=== PATIENT | female | born 1970 | race Caucasian/White ===

== ENCOUNTER → 2024-03-14 11:28 | Outpatient (REF) | payer BC, OTHER, SELFPAY ==
[2024-03-14 12:57] LABS: Hematocrit 33.5 % (37.0-47.0); Hemoglobin 10.9 g/dL (12.0-16.0); Mean Corp Hgb Conc. 32.5 g/dL (33.0-37.0); Mean Corpuscular Volume 104.4 fL (81.0-99.0); Mean Platelet Volume 9.7 fL (7.4-10.4); Platelet Count 266 10^3/uL (130-400); Red Blood Cell Count 3.21 10^6/uL (4.20-5.40); Red Cell Dist. Width 18.7 % (11.5-14.5); White Blood Cell Count 8.4 10^3/uL (4.8-10.8)
[2024-03-14 13:30] LABS: ALT (SGPT) 73 U/L (0-35); AST (SGOT) 71 U/L (14-36); Albumin 4.9 g/dl (3.5-5.0); Alkaline Phosphatase 144 U/L (38-126); Blood Urea Nitrogen 56 mg/dl (7-17); Calcium 10.7 mg/dl (8.4-10.2); Carbon Dioxide 25 mmol/L (22-30); Chloride 104 mmol/L (98-107); Glucose 109 mg/dl (70-99); Magnesium 2.2 mg/dl (1.6-2.3); Potassium 4.7 mmol/L (3.5-5.1); Sodium 141 mmol/L (135-145); Total Bilirubin 0.5 mg/dl (0.2-1.3); Total Protein 7.5 g/dl (6.3-8.2); eGFR 23.27
[2024-03-14 13:34] LABS: Absolute Neutrophils -Man Diff 5.2 10^3/uL (1.4-6.5); Anisocytosis 1+; Band Neutrophils 3 % (0-3); Lymphocytes 31 % (20-51); Metamyelocytes 1 % (-); Monocytes 5 % (2-9); Myelocytes 1 % (-); Normal RBC Morphology No; Platelets Checked Yes; Segmented Neutrophils 59 % (42-75); Total Cells Counted 100
[2024-03-15 16:42] LABS: CMV Qnt NAAT Plasma Log IU/mL Not Detected log IU/mL; CMV Quant NAAT Plasma Interp Not Detected (Not Detected); CMV Quant by NAAT Plasma IU/mL Not Detected
[2024-03-16 01:48] LABS: Tacrolimus (Prograft - FK506) 11.2 ng/mL
== END ==
LOC: REG 11:28
DX: Z94.2 Lung transplant status (principal); T86.819 Unspecified complication of lung transplant; Z79.52 Long term (current) use of systemic steroids; Z79.899 Other long term (current) drug therapy; B25.9 Cytomegaloviral disease, unspecified
CPT/HCPCS: 36415; 80053; 80197; 83735; 85025; 87497